=== PATIENT | female | born 1950 | race Caucasian/White ===

== ENCOUNTER 2020-11-27 07:35 | Day surgery (SDC) | payer MEDICARE ==
[2020-11-25 12:14] LABS: BASOPHILS # (AUTO) 0.1 X10'3 (0-0.2); BASOPHILS % (AUTO) 0.7 % (0-1); EOSINOPHILS # (AUTO) 0.3 X10'3 (0-0.9); EOSINOPHILS % (AUTO) 4.7 % (0-6); HEMATOCRIT 40.4 % (35.0-45.0); HEMOGLOBIN 13.7 g/dl (12.0-16.0); LYMPHOCYTES # (AUTO) 2.5 X10'3 (1.1-4.8); LYMPHOCYTES % (AUTO) 34.7 % (21-51); MEAN CORPUSCULAR HEMOGLOBIN 29.2 PG (27.0-31.0); MEAN PLATELET VOLUME 8.3 FL (7.4-10.4); MONOCYTES # (AUTO) 0.5 X10'3 (0-0.9); MONOCYTES % (AUTO) 6.4 % (2-12); NEUTROPHILS # (AUTO) 3.9 X10'3 (1.8-7.7); NEUTROPHILS % (AUTO) 53.5 % (42-75); PLATELET COUNT 240 X10'3 (140-440); RED CELL DISTRIBUTION WIDTH 13.4 % (11.5-14.5); WHITE BLOOD COUNT 7.3 X10'3 (4.5-11.0)
[2020-11-25 12:21] LABS: PARTIAL THROMBOPLASTIN TIME 28 SECONDS (22-32)
[2020-11-25 12:23] LABS: ALANINE AMINOTRANSFERASE 24 U/L (12-78); ALBUMIN 3.7 G/DL (3.4-5.0); ALKALINE PHOSPHATASE 86 IU/L (46-116); ANION GAP 8 (8-16); ASPARTATE AMINO TRANSFERASE 18 U/L (10-37); BILIRUBIN,TOTAL 0.4 MG/DL (0.1-1.0); BLOOD UREA NITROGEN 15 MG/DL (7-18); CALCIUM 9.1 MG/DL (8.5-10.1); CHLORIDE 103 MMOL/L (99-107); GLUCOSE 113 MG/DL (70-104); SODIUM 139 MMOL/L (135-145); TOTAL CARBON DIOXIDE 28.4 MMOL/L (24-32); TOTAL PROTEIN 7.3 G/DL (6.4-8.2); eGFR > 90 ML/MIN
[2020-11-25 12:29] LABS: POTASSIUM 4.1 MMOL/L (3.5-5.1)
[2020-11-27] VITALS (11 sets, daily range): BP systolic 119–141; BP diastolic 61–83
[~2020-11-27] VITALS: Ht 167.6 cm; Wt 80.9 kg
[~2020-11-27 07:35] MED LIST: ASPI-1 PO; CRAN; ECHI167T; IBUP-1984 PO; METO25TA6 PO; MULT-1141 PO; OXYC-658 PO; PRAV40TA3 PO; SENN-173 PO; VITA400C21 PO
[2020-11-27] MEDS ORDERED: nitroGLYCERIN 0.4mg SUBLingual tab SL PRN (07:50)
[2020-11-27] MEDS ORDERED: normal saline 1,000 ML IV SCH (07:50)
[2020-11-27] MEDS ORDERED: LORazepam 0.5 MG tablet PO PRN (07:50)
[2020-11-27] MEDS ORDERED: diphenhydrAMINE 25mg capsule PO PRN (07:50)
[2020-11-27] MEDS ORDERED: PRAV20TA4 PO (08:07)
[2020-11-27] MEDS ORDERED: TYLENOL (08:07)
[2020-11-27] MEDS ORDERED: [UNRECOGNIZED DRUG - OTHER] (08:07)
[2020-11-27] MEDS ORDERED: CHIA SEEDS (08:07)
[2020-11-27] MEDS ORDERED: fentaNYL/PF 50MCG/1 ML 2ML syringe ONE (08:55)
[2020-11-27] MEDS ORDERED: LIDOcaine 1% (10mg/ml)w/preservative injection 20ml MDV ONE (08:55)
[2020-11-27] MEDS ORDERED: midazolam 2 mg/2 ml injection ONE (08:55)
[2020-11-27] MEDS ORDERED: iohexol 350 MG/ML 50ML vial IV ONE (08:56)
[2020-11-27] MEDS ORDERED: iohexol 350MG/ML 100ml bottle IV ONE (08:56)
[2020-11-27] MEDS ORDERED: HYDROcodone/acetaminophen 5mg/325mg tablet PO PRN (10:30)
[2020-11-27] MEDS ORDERED: ondansetron/PF 4mg/2ml inj IV PRN (10:30)
[2020-11-27] MEDS ORDERED: proCHLORperazine 10 MG/2 ml inj IV PRN (10:30)
[2020-11-27] MEDS ORDERED: OXAZEpam 15mg capsule PO PRN (10:30)
[2020-11-27] MEDS ORDERED: acetaminophen 325mg tablet PO PRN (10:30)
[2020-11-27] MEDS ORDERED: HYDROcodone/acetaminophen 10/325mg tab PO PRN (10:30)
[2020-11-27] MEDS ORDERED: metoprolol tartrate 25mg tablet PO SCH (20:00)
== END 2020-11-27 16:00 | disposition home or self-care (01) ==
LOC: SSTAY O 07:35
PROVIDERS: ATTEND Internal Medicine Cardiovascular Disease
DX: R94.39 Abnormal result of other cardiovascular function study (principal); I25.10 Atherosclerotic heart disease of native coronary artery without angina pectoris; I10 Essential (primary) hypertension; E78.5 Hyperlipidemia, unspecified; J44.9 Chronic obstructive pulmonary disease, unspecified; Z79.01 Long term (current) use of anticoagulants; Z79.899 Other long term (current) drug therapy
CPT/HCPCS: 36415; 71046; 76937; 80053; 85025; 85610; 85730; 93005; 93458; 99152; 99153; C1760; C1769; J1644; J2001; J2250; J3010; J7030; Q0163; Q9967; 93452; A4620; A6258

== ENCOUNTER 2023-07-09 11:42 | Emergency (ER) | payer MEDICARE ==
[~2023-07-09] VITALS: Ht 167.6 cm; Wt 90.0 kg
[~2023-07-09 11:42] MED LIST changes: -ASPI-1 PO; +CHIA SEEDS; -ECHI167T; +LOP25T PO; -METO25TA6 PO; -OXYC-658 PO; +PRAV20TA4 PO; -PRAV40TA3 PO; -SENN-173 PO; +TYLENOL; +[UNRECOGNIZED DRUG - OTHER]
[2023-07-09 11:50] VITALS: BP 159/76; PULSE 78; RESP 18; O2SAT 98
[2023-07-09 14:05] LABS: BASOPHILS % (AUTO) 0.6 % (0-1); EOSINOPHILS # (AUTO) 0.2 X10'3 (0-0.9); EOSINOPHILS % (AUTO) 2.6 % (0-6); HEMATOCRIT 42.1 % (35.0-45.0); HEMOGLOBIN 13.9 g/dl (12.0-16.0); LYMPHOCYTES # (AUTO) 2.5 X10'3 (1.1-4.8); LYMPHOCYTES % (AUTO) 35.6 % (21-51); MEAN CORPUSCULAR HEMOGLOBIN 29.2 PG (27.0-31.0); MEAN CORPUSCULAR HGB CONC 33.1 g/dL (33.0-36.5); MEAN CORPUSCULAR VOLUME 88.1 FL (78-98); MEAN PLATELET VOLUME 8.2 FL (7.4-10.4); MONOCYTES # (AUTO) 0.4 X10'3 (0-0.9); MONOCYTES % (AUTO) 6.4 % (2-12); NEUTROPHILS # (AUTO) 3.9 X10'3 (1.8-7.7); NEUTROPHILS % (AUTO) 54.8 % (42-75); PLATELET COUNT 239 X10'3 (140-440); RED BLOOD COUNT 4.78 X10'6 (4.20-5.60); RED CELL DISTRIBUTION WIDTH 13.6 % (11.5-14.5)
[2023-07-09 14:21] LABS: ALANINE AMINOTRANSFERASE 34 U/L (12-78); ALBUMIN 3.9 G/DL (3.4-5.0); ALBUMIN/GLOBULIN RATIO 1.1 (1.1-1.5); ALKALINE PHOSPHATASE 86 IU/L (46-116); ANION GAP 6 (8-16); ASPARTATE AMINO TRANSFERASE 18 U/L (10-37); BILIRUBIN,TOTAL 0.5 MG/DL (0.1-1.0); BLOOD UREA NITROGEN 12 MG/DL (7-18); BUN/CREATININE RATIO 18.8 (10.0-20.0); CALCIUM 9.9 MG/DL (8.5-10.1); CHLORIDE 104 MMOL/L (99-107); CREATININE 0.64 MG/DL (0.40-0.90); GLUCOSE 96 MG/DL (70-104); POTASSIUM 3.8 MMOL/L (3.5-5.1); SODIUM 139 MMOL/L (135-145); TOTAL PROTEIN 7.5 G/DL (6.4-8.2); eCRCL 72 ML/MIN; eGFR > 90 ML/MIN
== END 2023-07-09 16:46 | disposition home or self-care (01) ==
LOC: ER 11:43
DX: R42 Dizziness and giddiness (principal); R55 Syncope and collapse; E78.00 Pure hypercholesterolemia, unspecified; Z91.09 Other allergy status, other than to drugs and biological substances; Z79.899 Other long term (current) drug therapy; Z79.1 Long term (current) use of non-steroidal anti-inflammatories (NSAID); Z90.710 Acquired absence of both cervix and uterus
CPT/HCPCS: 36415; 70450; 72125; 80053; 85025; 99284